=== PATIENT | female | born 1990 | race Caucasian/White ===

== ENCOUNTER 2019-08-01 20:13 | Emergency (ER) | payer OTHER ==
[~2019-08-01 20:13] MED LIST: ALBUTEROL INHALER; PROGESTERONE; XOPENEX
== END 2019-08-01 23:35 | disposition home or self-care (01) ==
LOC: MED 20:19
DX: R11.0 Nausea (principal); Z79.899 Other long term (current) drug therapy
CPT/HCPCS: 81002; 81025; 99283

== ENCOUNTER 2019-08-13 12:40 | Emergency (ER) | payer OTHER ==
[~2019-08-13] VITALS: Ht 162.6 cm; Wt 79.9 kg
[2019-08-13 12:49] VITALS: BP 115/71
--- NOTE | 2019-08-13 13:30 | NUR ---
C/O HEADACHE X 1 DAY. PT DENIES N/V, BLURRY VISION, CONFUSION. PT STATES SHE HIT THE TOP OF HER HEAD WHILE GETTING OUT OF THE CAR YESTERDAY. NO LOC. PT IS ALERT AND ANSWERING QUESTIONS APPROPRIATELY. BED IN LOW POSITION, SIDE RAIL UP X1
--- NOTE | 2019-08-13 13:50 | NUR ---
ERMD AT BEDSIDE
[2019-08-13] MEDS ORDERED: IBUPROFEN 400 MG TAB PO ONE (13:55)
[2019-08-13 14:33] VITALS: BP 120/71
== END 2019-08-13 14:34 | disposition home or self-care (01) ==
LOC: MED 12:40
DX: G44.209 Tension-type headache, unspecified, not intractable (principal); J45.909 Unspecified asthma, uncomplicated; Z79.899 Other long term (current) drug therapy
CPT/HCPCS: 81002; 81025; 99283

== ENCOUNTER 2019-09-08 06:09 | Emergency (ER) | payer OTHER ==
[~2019-09-08] VITALS: Ht 157.5 cm; Wt 79.4 kg
[2019-09-08 06:10] VITALS: BP 119/72
--- NOTE | 2019-09-08 06:10 | NUR ---
TO BED # 07 AMBULATORY
--- NOTE | 2019-09-08 06:15 | NUR ---
PT BIB SELF WITH C/O COUGH X 3 DAYS, GENERALIZED BODY ACHES, AND LLQ ABD PAIN 5/10. RESPIRATIONS ARE EVEN AND UNLABORED. LUNG SOUNDS CLEAR A/P BILAT. PT NOTED WITH COUGH. PT STATES NON-PRODUCTIVE. PT STATES CHEST HURTS WHEN COUGHING, 5/10 PAIN. PT STATES LLQ ABD PAIN ONLY OCCURS WHEN WALKING. AFEBRILE. DENIES N/V/D. NO MEDICATIONS TAKEN AT HOME TO RELIEVE SYMPTOMS. PT SITTING UPRIGHT IN BED. BED LOCKED AND IN LOWEST POSITION. VSS. MED HX: NONE ALLERGIES: NONE.
--- NOTE | 2019-09-08 06:41 | NUR ---
Dr. Cassidy examining patient.
--- NOTE | 2019-09-08 07:05 | NUR ---
GAVE REPORT TO MANOHAR CLEMENTS. TRANSFER OF CARE GIVEN.
--- NOTE | 2019-09-08 07:15 | NUR ---
US AT BEDSIDE, PATIENT DENIES ANY PAIN AT THIS TIME.
[2019-09-08 07:16] LABS: BASOPHILS % (AUTO) 0.5 % (0.0-2.0); EOSINOPHILS % (AUTO) 0.7 % (0.0-4.0); HEMATOCRIT 35.6 % (36-48); HEMOGLOBIN 11.5 g/dL (12.0-16.0); LYMPHOCYTES # (AUTO) 1.5 K/uL (2.5-16.5); LYMPHOCYTES % (AUTO) 29.3 % (20.5-51.1); MEAN CORPUSCULAR HEMOGLOBIN 28 pg (27-31); MEAN CORPUSCULAR HGB CONC 32 g/dL (33-37); MEAN CORPUSCULAR VOLUME 86.4 fL (80-94); MONOCYTES # (AUTO) 0.4 K/uL (0.8-1.0); MONOCYTES % (AUTO) 7.7 % (1.7-9.3); NEUTROPHILS # (AUTO) 3.3 K/uL (1.8-7.7); NEUTROPHILS % (AUTO) 61.8 % (42.2-75.2); PLATELET COUNT (AUTO) 335 K/uL (140-450); RED BLOOD CELL COUNT(AUTO) 4.12 MIL/uL (4.20-5.40); RED CELL DISTRIBUTION WIDTH 13.5 % (11.6-13.7); WHITE BLOOD COUNT (AUTO) 5.3 K/uL (4.8-10.8)
[2019-09-08 07:17] LABS: ANION GAP 9.8 (8-16); CARBON DIOXIDE 28.3 mmol/L (21-32); CREATININE 0.6 mg/dL (0.6-1.3); POTASSIUM 5.1 mmol/L (3.5-5.1)
[2019-09-08 07:22] LABS: ALBUMIN 3.7 g/dL (3.4-5.0); TOTAL BILIRUBIN 0.2 mg/dL (0.0-1.0)
[2019-09-08] MEDS ORDERED: KETOROLAC 60 MG/2 ML VIAL IM ONE (07:50)
[2019-09-08 08:28] VITALS: BP 119/72
--- NOTE | 2019-09-08 08:28 | NUR ---
Patient discharged to home. Written and verbal after care instructions given and explained. Rx of motrin given. Patient educated on indication of medication including possible reaction and side effects. All questions addressed prior to discharge. ID band removed. Patient advised to follow up with PMD.
== END 2019-09-08 08:28 | disposition home or self-care (01) ==
LOC: MED 06:09
DX: S76.011A Strain of muscle, fascia and tendon of right hip, initial encounter (principal); J45.909 Unspecified asthma, uncomplicated; Z79.899 Other long term (current) drug therapy; X58.XXXA Exposure to other specified factors, initial encounter; Y93.89 Activity, other specified; Y92.524 Gas station as the place of occurrence of the external cause; Y99.8 Other external cause status
CPT/HCPCS: 36415; 76856; 80053; 81002; 81025; 83690; 85025; 87804; 96372; 99284; J1885; Q0092

== ENCOUNTER 2020-05-21 02:35 | Emergency (ER) | payer OTHER ==
[~2020-05-21] VITALS: Ht 160 cm; Wt 82.6 kg
[2020-05-21 02:43] VITALS: BP 117/54
--- NOTE | 2020-05-21 02:45 | NUR ---
29 YO F BIB SELF FOR VAGINAL BLEEDING PT IS 7 WEEKS PREGANT AND REPORTS MODERATE VAGINAL BLEEDING X30 MIN. DENIES CRAMPING OR PAIN AT THIS TIME. 3, PARA 2. MED HX: ASTHMA RX: DENIES NKA
--- NOTE | 2020-05-21 03:07 | NUR ---
Dr. Quiñones examining patient.
[2020-05-21 03:14] LABS: BASOPHILS % (AUTO) 0.4 % (0.0-2.0); EOSINOPHILS % (AUTO) 0.5 % (0.0-4.0); HEMOGLOBIN 10.7 g/dL (12.0-16.0); LYMPHOCYTES # (AUTO) 1.5 K/uL (2.5-16.5); LYMPHOCYTES % (AUTO) 19.1 % (20.5-51.1); MEAN CORPUSCULAR HEMOGLOBIN 27 pg (27-31); MEAN CORPUSCULAR HGB CONC 32 g/dL (33-37); MEAN CORPUSCULAR VOLUME 83.8 fL (80-94); MONOCYTES # (AUTO) 0.5 K/uL (0.8-1.0); MONOCYTES % (AUTO) 6.9 % (1.7-9.3); NEUTROPHILS # (AUTO) 5.7 K/uL (1.8-7.7); NEUTROPHILS % (AUTO) 73.1 % (42.2-75.2); PLATELET COUNT (AUTO) 315 K/uL (140-450); RED BLOOD CELL COUNT(AUTO) 3.94 MIL/uL (4.20-5.40); RED CELL DISTRIBUTION WIDTH 14.5 % (11.6-13.7); WHITE BLOOD COUNT (AUTO) 7.8 K/uL (4.8-10.8)
--- NOTE | 2020-05-21 03:20 | NUR ---
Ultrasound at bedside.
--- NOTE | 2020-05-21 05:00 | NUR ---
Patient discharged with v/s stable. Written and verbal after care instructions given and explained. Patient verbalized understanding. Ambulatory with steady gait. All questions addressed prior to discharge. Advised to follow up with PMD.
[2020-05-21 05:08] VITALS: BP 117/54
== END 2020-05-21 05:00 | disposition home or self-care (01) ==
LOC: MED 02:35
DX: O26.851 Spotting complicating pregnancy, first trimester (principal); O20.8 Other hemorrhage in early pregnancy; J45.909 Unspecified asthma, uncomplicated; Z3A.01 Less than 8 weeks gestation of pregnancy; Z79.899 Other long term (current) drug therapy
CPT/HCPCS: 36415; 76801; 81002; 81025; 85025; 86900; 86901; 99284; Q0092

== ENCOUNTER 2021-01-11 20:29 | Emergency (ER) | payer OTHER ==
[~2021-01-11] VITALS: Ht 157.5 cm; Wt 87.5 kg
[2021-01-11 20:46] VITALS: BP 117/69
[2021-01-11] MEDS: diphenhydrAMINE 50 MG/ML VIAL IVP ONE (21:50)
[2021-01-11] MEDS: DEXAMETHASONE 10 MG/ML VIAL IVP ONE (21:50)
[2021-01-11] MEDS ORDERED: CALA180L19 TP (22:48)
[2021-01-11] MEDS ORDERED: PRED20TA5 PO (22:48)
[2021-01-11] MEDS ORDERED: BEN50 PO (22:48)
[2021-01-11] MEDS ORDERED: EPIN1KIT31 IM (22:51)
[2021-01-11 23:15] VITALS: BP 108/71
== END 2021-01-11 23:10 | disposition home or self-care (01) ==
LOC: MED 20:29
DX: L50.9 Urticaria, unspecified (principal); Z98.890 Other specified postprocedural states
CPT/HCPCS: 96374; 96376; 99284; J1100; J1200

== ENCOUNTER 2023-10-08 16:08 | Emergency (ER) | payer OTHER ==
[~2023-10-08] VITALS: Ht 154.9 cm; Wt 88.0 kg
[~2023-10-08 16:08] MED LIST changes: +BEN50 PO; +CALA180L19 TP; +EPIN1KIT31 IM; +PRED20TA5 PO
[2023-10-08 16:09] VITALS: BP 128/78; PULSE 85; RESP 20; TEMP 97.8; O2SAT 99
[2023-10-08 16:42] LABS: APPEARANCE,URINE CLEAR (CLEAR); BILIRUBIN,URINE NEGATIVE (NEGATIVE); BLOOD, URINE 3+ (NEGATIVE); LEUKOCYTE ESTERASE ,URINE TRACE (NEGATIVE); NITRITE, URINE POSITIVE (NEGATIVE); PH,URINE 6.5 (5.0-9.0); PROTEIN,URINE 2+ (NEGATIVE); UGLUCOSE NEGATIVE (NEGATIVE); UROBILINOGEN,URINE 0.2 EU/dL (0.2 - 1)
[2023-10-08 16:43] LABS: COLOR,URINE RED (YELLOW)
[2023-10-08 16:52] LABS: BACTERIA,URINE 10-30 (MOD) /HPF (None Seen); MUCUS,URINE None Seen /LPF (None Seen); RBC,URINE TOO NUMEROUS TO COUN /HPF (0-5); SQUAMOUS EPITHELIAL CELL,UR None Seen /LPF (0-3 (FEW)); TRICHOMONAS,URINE None Seen /HPF (None Seen); WHITE BLOOD CELL CASTS,URINE None Seen /LPF (None Seen); YEAST,URINE None Seen /HPF (None Seen)
[2023-10-08 16:58] LABS: BASOPHILS % (AUTO) 0.7 % (0.0-2.0); EOSINOPHILS # (AUTO) 0.1 K/uL (0-0.4); EOSINOPHILS % (AUTO) 1.7 % (0.0-4.0); HEMATOCRIT 27.8 % (36-48); HEMOGLOBIN 8.6 g/dL (12.0-16.0); LYMPHOCYTES # (AUTO) 1.3 K/uL (2.5-16.5); LYMPHOCYTES % (AUTO) 22.7 % (20.5-51.1); MEAN CORPUSCULAR HEMOGLOBIN 21 pg (27-31); MEAN CORPUSCULAR HGB CONC 31 g/dL (33-37); MEAN CORPUSCULAR VOLUME 69.1 fL (80-94); MONOCYTES # (AUTO) 0.5 K/uL (0.8-1.0); MONOCYTES % (AUTO) 8.5 % (1.7-9.3); NEUTROPHILS # (AUTO) 3.9 K/uL (1.8-7.7); NEUTROPHILS % (AUTO) 66.4 % (42.2-75.2); PLATELET COUNT (AUTO) 473 K/uL (140-450); RED BLOOD CELL COUNT(AUTO) 4.02 MIL/uL (4.20-5.40); RED CELL DISTRIBUTION WIDTH 17.5 % (11.6-13.7); WHITE BLOOD COUNT (AUTO) 5.9 K/uL (4.8-10.8)
[2023-10-08] MEDS ORDERED: CEPH-588 PO (18:37)
[2023-10-08] MEDS ORDERED: ACET-10509 PO (18:38)
[2023-10-08] MEDS ORDERED: PYR100 PO (18:38)
[2023-10-08] MEDS: cephALEXin 500 MG CAP PO ONE (18:51)
[2023-10-08 19:08] VITALS: BP 120/82; PULSE 88; RESP 16; TEMP 98; O2SAT 99
== END 2023-10-08 19:08 | disposition home or self-care (01) ==
LOC: MED 16:08
DX: N39.0 Urinary tract infection, site not specified (principal); N93.9 Abnormal uterine and vaginal bleeding, unspecified; R10.2 Pelvic and perineal pain; R31.9 Hematuria, unspecified; Z79.899 Other long term (current) drug therapy
CPT/HCPCS: 36415; 76856; 81001; 81025; 85025; 87086; 93976; 99284; Q0092